=== PATIENT | male | born 1995 | race Caucasian/White ===

== ENCOUNTER 2020-07-26 15:43 | Emergency (ER) | payer OTHER ==
--- NOTE | 2020-07-26 16:19 | ED Physician Documentation ---
PD HPI UPPER EXT INJURY - Stated complaint Stated Complaint: BILAT HAND PX/INJ - Chief complaint Chief Complaint: Trauma Ext - History obtained from History obtained from: Patient - History of Present Illness Location: Right, Left, Wrist, Finger (index) Type of injury: Blunt / blow Where injury occurred: Work Timing - onset: Today Timing - duration: Hours Timing - details: Abrupt onset, Still present Improved by: Rest, Ice, Immobilization Worsened by: Moving, Palpating Associated symptoms: No: Weakness, Numbness, Tingling, Swelling Contributing factors: No: Anticoagulated Similar symptoms before: Has not had sx before Recently seen: Not recently seen - Additonal information Additional information: 24-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 Double gave way and the patient slammed his hand into the bulkhead and injured his right wrist simultaneously. He did go to medical and they were unable to get him in for x-rays until 3 days from now. His command to send him to the emergency department for x-rays.He is able to bend the index finger is able to bend the wrist but has pain with this. Review of Systems Constitutional: denies: Fever, Chills Ears: denies: Ear pain Nose: denies: Congestion Throat: denies: Sore throat Respiratory: denies: Cough GI: denies: Vomiting PD PAST MEDICAL HISTORY - Past Medical History Past Medical History: No - Past Surgical History Past Surgical History: Yes - Present Medications Home Medications: Ambulatory Orders Medication Instructions Recorded Confirmed No Known Home Medications 07/26/20 07/26/20 - Allergies Allergies/Adverse Reactions: Allergies Allergy/AdvReac Type Severity Reaction Status Date / Time No Known Drug Allergies Allergy Verified 07/26/20 15:47 - Social History Does the pt smoke?: Yes Smoking Status: Current every day smoker Does the pt drink ETOH?: Yes ETOH Use: Wine, Beer, Liquor Does the pt have substance abuse?: No - Immunizations Immunizations are current?: Yes - POLST Patient has POLST: No PD ED PE NORMAL - Vitals Vital signs reviewed: Yes (Hypertensive) - General General: No acute distress, Well developed/nourished - HEENT HEENT: Atraumatic, PERRL, EOMI - Respiratory Respiratory: No respiratory distress - Derm Derm: Normal color, Warm and dry, No rash - Extremities Extremities: No deformity, No edema, Other (There is mild swelling and point tenderness over the volar surface of the right wrist. There is no pain to the a natomic snuffbox or the dorsal wrist the distal neurovascular components are intact.There is pain and tenderness to the R index finger over the PIP. There is no crepitance and normal ROM) - Neuro Neuro: Alert and oriented X 3, supervisor painting 2-12 intact, No motor deficit, No sensory deficit, Normal speech Eye Opening: Spontaneous Motor: Obeys Commands Verbal: Oriented GCS Score: 15 - Psych Psych: Normal mood, Normal affect Results - Vitals Vitals: Vital Signs - 24 hr 07/26/20 15:48 Temperature 37.4 C Heart Rate 62 Respiratory 16 Rate Blood Pressure 145/76 H O2 Saturation 100 Oxygen O2 Source Room air - Rads (name of study) wrist Radiology: Prelim report reviewed (Impression: Finding is consistent with a nondisplaced oblique fracture through the lateral corner of the distal sca phoid.), EMP read indepedently (area of tenderness does not correlate with fracture on x-ray. ), See rad report finger Radiology: Prelim report reviewed (Impression: No acute second-degree fracture or dislocation. No suspicious interosseous lesion.), EMP read indepedently, See rad report Procedures - Splint (location) wrist Type of splint: Fiberglass, Volar cock up Other: Patient tolerated well, No complications, Neurovascular intact, Good alignment finger Splint applied by: Tech Type of splint: Metal foam finger splint Other: Patient tolerated well, No complications, Neurovascular intact, Good alignment PD MEDICAL DECISION MAKING - ED course Complexity details: reviewed results, re-evaluated patient, considered differential, d/w patient ED course: 24-year-old male with an injury to his wrist and index finger appears to have a nondisplaced fracture of the navicula and the fracture does not appear to be in an area where the patient has tenderness. He is placed into a splint with wrist sprain and we will refer him to orthopedics for further evaluation of this possible scaphoid fracture. Departure - Departure Disposition: 01 Home, Self Care Clinical Impression: Finger sprain Qualifiers: Encounter type: initial encounter Finger: index finger Sprain of finger site: interphalangeal joint Laterality: left Qualified Code(s): S63.631A - Sprain of interphalangeal joint of left index finger, initial encounter Scaphoid fracture, wrist, closed Qualifiers: Encounter type: initial encounter Scaphoid bone location: distal pole Fracture alignment: nondisplaced Laterality: right Qualified Code(s): S62.014A - Nondisplaced fracture of distal pole of navicular [scaphoid] bone of right wrist, initial encounter for closed fracture Condition: Stable Instructions: ED Sprain Finger, ED Fx Wrist Navicular Poss Follow-Up: Fausto Cooney MD [Provider Admit Priv/Credential] - Comments: Today on the x-ray it appears you may have a nondisplaced fracture of the scaphoid. This is not an area where you are specifically tender and further evaluation by the orthopedic doctor is required. Follow-up with orthopedics within the next week.
--- NOTE | 2020-07-26 16:42 | XRAY Report ---
PROCEDURE: Finger(s) LT INDICATIONS: INDEX PIP CONTUSION TECHNIQUE: AP hand, 2 views of the second finger(s) acquired. COMPARISON: None FINDINGS: Bones: No fractures or dislocations. No suspicious bony lesions. Soft tissues: No suspicious soft tissue calcifications. IMPRESSION: No acute second finger fracture or dislocation. No suspicious intraosseous lesion. Reviewed by: Kyle Torres MD on 07/26/2020 4:41 PM PST Approved by: Kyle Torres MD on 07/26/2020 4:41 PM [facility] Station ID: [id number]
--- NOTE | 2020-07-26 16:43 | XRAY Report ---
PROCEDURE: Wrist 4 View RT INDICATIONS: contusion volar radial pain TECHNIQUE: 4 views of the wrist were acquired. COMPARISON: None. FINDINGS: Bones: Cortical irregularity and disruption involving lateral portion of distal scaphoid concerning f or a nondisplaced scaphoid fracture. No other fracture or dislocation is seen. No suspicious bony le sions. Scaphoid view: No evidence of osteonecrosis is seen. Soft tissues: No suspicious soft tissue calcifications. IMPRESSION: Finding is consistent with a nondisplaced oblique fracture through lateral corner of the distal scaph oid. Reviewed by: Kyle Torres MD on 07/26/2020 4:42 PM PST Approved by: Kyle Torres MD on 07/26/2020 4:42 PM PST Station ID: [id number]
[2020-07-26 17:29] VITALS: BP 142/90
== END 2020-07-26 17:34 | disposition home or self-care (01) ==
LOC: ED 15:43
DX: S62.014A Nondisplaced fracture of distal pole of navicular [scaphoid] bone of right wrist, initial encounter for closed fracture (principal); S63.631A Sprain of interphalangeal joint of left index finger, initial encounter; W22.8XXA Striking against or struck by other objects, initial encounter; Y93.89 Activity, other specified; Y92.139 Unspecified place military base as the place of occurrence of the external cause; Y99.1 Military activity; F17.200 Nicotine dependence, unspecified, uncomplicated
CPT/HCPCS: 29125; 99282; 99283

== ENCOUNTER 2021-04-04 09:08 | Outpatient (CLI) | payer OTHER ==
--- NOTE | 2021-04-04 11:51 | MRI Report ---
PROCEDURE: Brain W/WO INDICATIONS: MIGRAINE CONTRAST: IV CONTRAST: Gadavist ml: 9.7 TECHNIQUE: Noncontrast axial T1 spin echo, axial T2 fast spin echo, sagittal and axial FLAIR, coronal T2 fast sp in echo, axial gradient echo, axial diffusion and ADC through the brain. After the administration of contrast, axial and coronal T1 spin echo with fat saturation through the brain. COMPARISON: None. FINDINGS: Image quality: Diagnostic, with note made of motion artifact. CSF spaces: Basal cisterns are patent. No extra-axial fluid collections. Ventricles are normal in size and shape. Brain: No midline shift. No intracranial bleeds or masses. No abnormal intracranial enhancement. There is cerebral volume loss for age. There is periventricular white matter chronic small vessel is chemic change. The brainstem appears normal. Diffusion-weighted images demonstrate no acute ischemi c insults. No chronic ischemic insults. Normal intravascular flow voids are present. Skull and face: Calvarial marrow is normal in signal. Orbits appear normal. Sinuses: There is mild to moderate mucosal thickening involving the right maxillary sinus and mild mu cosal thickening involving the left maxillary sinus. The paranasal sinuses otherwise appear clear. No significant abnormal fluid can be seen within the mastoid air cells or within the middle ear cavitie s. IMPRESSION: A cause of headache cannot be seen on these images. No masses or abnormal enhancement can be seen. Maxillary sinus disease noted, right worse than left. Reviewed by: Mal Canela MD on 04/04/2021 10:49 AM [facility] Approved by: Mal Canela MD on 04/04/2021 10:49 AM [facility] Station ID: [id number]
== END 2021-04-04 09:09 | disposition home or self-care (01) ==
LOC: DI 09:08
DX: G43.809 Other migraine, not intractable, without status migrainosus (principal); J34.9 Unspecified disorder of nose and nasal sinuses
CPT/HCPCS: 70553; A9585